=== PATIENT | female | born 1960 | race Hispanic/Latino ===

== ENCOUNTER 2021-10-21 11:26 | Emergency (ER) | payer OTHER ==
[~2021-10-21] VITALS: Ht 152.4 cm; Wt 57.2 kg
[2021-10-21 11:40] LABS: BASOPHILS % (AUTO) 0.5 % (0.0-5.0); EOSINOPHILS % (AUTO) 0.1 % (0.0-8.0); HEMATOCRIT 41.1 % (36-48); LYMPHOCYTES % (AUTO) 20.3 % (21.0-51.0); MEAN CORPUSCULAR HEMOGLOBIN 28.5 pg (27.0-33.0); MEAN CORPUSCULAR HGB CONC 33.3 g/dL (32.0-36.0); MEAN CORPUSCULAR VOLUME 85.6 fL (79-99); MONOCYTES % (AUTO) 3.9 % (3.0-13.0); NEUTROPHILS % (AUTO) 74.7 % (40.0-77.0); PLATELET COUNT (AUTO) 312 K/uL (130-400); RED CELL DISTRIBUTION WIDTH 14.1 % (11.0-15.5); WHITE BLOOD COUNT (AUTO) 9.4 K/uL (4.8-10.8)
[2021-10-21 11:46] LABS: APPEARANCE,URINE CLEAR (CLEAR); BILIRUBIN,URINE NEGATIVE (NEGATIVE); COLOR,URINE YELLOW (YELLOW); GLUCOSE, URINE (UA) NEGATIVE (NEGATIVE); KETONES,URINE NEGATIVE (NEGATIVE); LEUKOCYTE ESTERASE ,URINE NEGATIVE (NEGATIVE); NITRATE,URINE NEGATIVE (NEGATIVE); OCCULT BLOOD,URINE SMALL (NEGATIVE); PH,URINE 8.5 (5.0-8.0); PROTEIN,URINE 30 mg/dL (NEGATIVE); UROBILINOGEN,URINE 0.2 mg/dL (0.2-1.0)
[2021-10-21 11:53] LABS: CREATININE 0.6 mg/dL (0.5-1.5); POTASSIUM 3.4 mmol/L (3.5-5.1)
[2021-10-21 11:56] LABS: BACTERIA,URINE Many /HPF (None Seen); MUCUS,URINE Moderate LPF (None Seen); WBC,URINE 0-1 /HPF (0-1)
[2021-10-21 11:57] LABS: ALBUMIN 3.4 g/dL (3.5-5.0); BILIRUBIN,TOTAL 0.3 mg/dL (0.2-1.0)
[2021-10-21] MEDS ORDERED: 0.9%NACL 1000ML 1,000 ML IV SCH (13:00)
[2021-10-21] MEDS ORDERED: CEFTRIAXONE 1G VIAL IVP ONE (13:00)
[2021-10-21] MEDS ORDERED: MORPHINE 2 MG SYG IVP ONE (13:00)
[2021-10-21] MEDS ORDERED: PROMETHAZINE HCL 25 MG/ML 1ML AMPULE IM ONE (13:00)
[2021-10-21] MEDS ORDERED: POTASSIUM BICARB/CIT AC 25 MEQ TABLET.EFF PO ONE (13:00)
[2021-10-21 13:33] VITALS: BP 164/62
[2021-10-21] MEDS ORDERED: CYCL10TA16 PO (13:56)
[2021-10-21] MEDS ORDERED: NAPR-1180 PO (13:56)
[2021-10-22] MEDS ORDERED: LEVO112C4 PO (12:21)
[2021-10-22] MEDS ORDERED: ATOR10 PO (12:21)
[2021-10-22] MEDS ORDERED: LOSA25TA41 PO (12:21)
== END 2021-10-21 14:15 | disposition home or self-care (01) ==
LOC: EDH 11:26
DX: M94.0 Chondrocostal junction syndrome [Tietze] (principal); R10.13 Epigastric pain; E03.9 Hypothyroidism, unspecified; E78.00 Pure hypercholesterolemia, unspecified; I10 Essential (primary) hypertension; Z90.49 Acquired absence of other specified parts of digestive tract
CPT/HCPCS: 36415; 74176; 80053; 81001; 82150; 84484; 85025; 87088; 93005; 96361; 96372; 96374; 96375; J0696; J2550; J7030

== ENCOUNTER 2021-10-22 10:24 | Observation (INO) | payer OTHER ==
[~2021-10-22] VITALS: Ht 152.4 cm; Wt 55.8 kg
[~2021-10-22 10:24] MED LIST: CYCL10TA16 PO; NAPR-1180 PO
[2021-10-22 11:00] LABS: APPEARANCE,URINE SL CLOUDY (CLEAR); BILIRUBIN,URINE NEGATIVE (NEGATIVE); COLOR,URINE YELLOW (YELLOW); GLUCOSE, URINE (UA) NEGATIVE (NEGATIVE); KETONES,URINE 40 mg/dL (NEGATIVE); LEUKOCYTE ESTERASE ,URINE NEGATIVE (NEGATIVE); NITRATE,URINE NEGATIVE (NEGATIVE); OCCULT BLOOD,URINE MODERATE (NEGATIVE); PH,URINE 8.5 (5.0-8.0); PROTEIN,URINE 30 mg/dL (NEGATIVE); UROBILINOGEN,URINE 0.2 mg/dL (0.2-1.0)
[2021-10-22 11:01] LABS: BASOPHILS % (AUTO) 0.4 % (0.0-5.0); HEMATOCRIT 42.2 % (36-48); LYMPHOCYTES % (AUTO) 20.4 % (21.0-51.0); MEAN CORPUSCULAR HEMOGLOBIN 28.9 pg (27.0-33.0); MEAN CORPUSCULAR HGB CONC 34.4 g/dL (32.0-36.0); MEAN CORPUSCULAR VOLUME 84.2 fL (79-99); MONOCYTES % (AUTO) 3.6 % (3.0-13.0); NEUTROPHILS % (AUTO) 74.3 % (40.0-77.0); PLATELET COUNT (AUTO) 334 K/uL (130-400); RED BLOOD CELL COUNT(AUTO) 5.01 MIL/uL (4.00-5.50); RED CELL DISTRIBUTION WIDTH 13.8 % (11.0-15.5); WHITE BLOOD COUNT (AUTO) 10.4 K/uL (4.8-10.8)
[2021-10-22 11:15] LABS: CREATININE 0.7 mg/dL (0.5-1.5)
[2021-10-22 11:18] LABS: BILIRUBIN,TOTAL 0.4 mg/dL (0.2-1.0); TOTAL PROTEIN, SERUM 7.9 g/dL (6.0-8.3)
[2021-10-22 11:25] LABS: AMORPHOUS SEDIMENT,UR Moderate /LPF (None Seen); BACTERIA,URINE Few /HPF (None Seen); WBC,URINE 0-1 /HPF (0-1)
[2021-10-22 11:28] LABS: POTASSIUM 2.9 mmol/L (3.5-5.1)
[2021-10-22] MEDS ORDERED: 0.9%NACL 1000ML 1,000 ML IV SCH (11:30)
[2021-10-22] MEDS ORDERED: PROMETHAZINE HCL 25 MG/ML 1ML AMPULE IM ONE (11:30)
[2021-10-22] MEDS ORDERED: POTASSIUM BICARB/CIT AC 25 MEQ TABLET.EFF PO SCH (12:00)
[2021-10-22] MEDS ORDERED: NITROGLYCERIN 1GM OINT 1 INCH/1GM TD SCH (12:00)
[2021-10-22] MEDS ORDERED: ASPIRIN 325MG TAB PO SCH (12:00)
[2021-10-22] MEDS ORDERED: LOSA25TA41 PO (12:21)
[2021-10-22] MEDS ORDERED: LEVO112C4 PO (12:21)
[2021-10-22] MEDS ORDERED: ATOR10 PO (12:21)
[2021-10-22] MEDS ORDERED: CEFTRIAXONE 1G VIAL IV SCH (12:30)
[2021-10-22] MEDS ORDERED: ONDANSETRON 4MG INJ IV PRN (12:30)
[2021-10-22] MEDS ORDERED: POTASSIUM CHLORIDE 20MEQ/100ML 100 ML IV ONE (12:49)
[2021-10-22] MEDS ORDERED: METOPROLOL TARTRATE 1 MG/ML 5ML VIAL IV PRN (13:00)
[2021-10-22] MEDS ORDERED: KETOROLAC 15MG/ML VIAL (15MG/ML) IV PRN (13:00)
[2021-10-22] MEDS ORDERED: LIDOCAINE HCL-MPF 1% 2ML VIAL IV PRN (13:00)
[2021-10-22] MEDS ORDERED: HYDROMORPHONE 0.5 MG SYG (0.5MG/0.5ML) IV PRN (13:30)
[2021-10-22] MEDS: LACTATED RINGERS 1000ML 1,000 ML IV SCH ×2 (13:58→20:53)
[2021-10-22] MEDS: POTASSIUM CHLORIDE 20MEQ/100ML 100 ML IV PRN (13:58)
[2021-10-22] MEDS: FAMOTIDINE 20MG VIAL IV SCH ×2 (14:13→20:47)
[2021-10-22 16:50] VITALS: BP 158/101
[2021-10-22 20:51] VITALS: BP 167/84
[2021-10-22] MEDS ORDERED: ATORVASTATIN 10 MG TABLET PO SCH (21:00)
[2021-10-22 23:40] VITALS: BP 189/89
[2021-10-23 02:32] VITALS: BP 157/93
[2021-10-23 04:25] LABS: BASOPHILS % (AUTO) 0.4 % (0.0-5.0); EOSINOPHILS % (AUTO) 0.1 % (0.0-8.0); HEMATOCRIT 42.1 % (36-48); LYMPHOCYTES % (AUTO) 20.2 % (21.0-51.0); MEAN CORPUSCULAR HEMOGLOBIN 28.8 pg (27.0-33.0); MEAN CORPUSCULAR VOLUME 84.9 fL (79-99); MONOCYTES % (AUTO) 5.9 % (3.0-13.0); PLATELET COUNT (AUTO) 325 K/uL (130-400); RED BLOOD CELL COUNT(AUTO) 4.96 MIL/uL (4.00-5.50); RED CELL DISTRIBUTION WIDTH 13.6 % (11.0-15.5); WHITE BLOOD COUNT (AUTO) 13.5 K/uL (4.8-10.8)
[2021-10-23 04:43] VITALS: BP 156/69
[2021-10-23 04:49] LABS: ALBUMIN 3.5 g/dL (3.5-5.0); BILIRUBIN,TOTAL 0.5 mg/dL (0.2-1.0); CREATININE 0.7 mg/dL (0.5-1.5); POTASSIUM 3.5 mmol/L (3.5-5.1); THYROID STIMULATING HORMONE 0.33 uIU/mL (0.36-3.74); TOTAL PROTEIN, SERUM 7.3 g/dL (6.0-8.3)
[2021-10-23] MEDS ORDERED: LEVOTHYROXINE 112 MCG TABLET PO SCH (06:30)
[2021-10-23] MEDS: LACTATED RINGERS 1000ML 1,000 ML IV SCH (06:48)
[2021-10-23] MEDS: POTASSIUM CHLORIDE 20MEQ/100ML 100 ML IV PRN (06:49)
[2021-10-23 08:00] VITALS: BP 185/90
[2021-10-23] MEDS: FAMOTIDINE 20MG VIAL IV SCH (08:52)
[2021-10-23] MEDS ORDERED: CEPH500T PO (09:00)
[2021-10-23] MEDS ORDERED: ENOXAPARIN SODIUM 40 MG/0.4 ML SYRINGE SQ SCH (09:00)
[2021-10-23] MEDS ORDERED: LOSARTAN 25 MG TABLET PO SCH (09:00)
[2021-10-23] MEDS ORDERED: ONDA-104 PO (09:00)
[2021-10-23] MEDS ORDERED: DICY20TA3 PO (09:00)
[2021-10-23] MEDS ORDERED: PANT40TA54 PO (09:01)
== END 2021-10-23 10:15 | disposition home or self-care (01) ==
LOC: EDH 10:24 → INTOOBSV 12:21 → OBSVTOIN 12:21 → EDHIP 12:21 → 4BH 16:44
PROVIDERS: ADMIT Hospitalist; ATTEND Hospitalist
DX: K52.9 Noninfective gastroenteritis and colitis, unspecified (principal); Z20.822 Contact with and (suspected) exposure to COVID-19; E86.1 Hypovolemia; R07.89 Other chest pain; E87.6 Hypokalemia; E78.5 Hyperlipidemia, unspecified; I10 Essential (primary) hypertension; E03.9 Hypothyroidism, unspecified; M94.0 Chondrocostal junction syndrome [Tietze]; Z85.850 Personal history of malignant neoplasm of thyroid; Z90.49 Acquired absence of other specified parts of digestive tract; Z79.899 Other long term (current) drug therapy
CPT/HCPCS: 99285; 96361 ×2; 96365; 96375; 71045; 87635; 96366 ×2; 96376 ×2; 84484 ×3; 80053 ×2; 83690; 85025 ×2; 87088; 81001; 36415 ×2; 93005 ×3; 96372 ×2; 84443; J3490 ×6; J7030; J2550; J0696; J2405 ×2; J3480 ×2; J1885; G0378; J7120; J1650

== ENCOUNTER 2022-04-03 10:29 | Emergency (ER) | payer OTHER ==
[~2022-04-03] VITALS: Ht 152.4 cm; Wt 55.8 kg
[~2022-04-03 10:29] MED LIST changes: +ATOR10 PO; +CEPH500T PO; -CYCL10TA16 PO; +DICY20TA3 PO; +LEVO112C4 PO; +LOSA25TA41 PO; -NAPR-1180 PO; +ONDA-104 PO; +PANT40TA54 PO
[2022-04-03 10:58] LABS: BASOPHILS % (AUTO) 0.5 % (0.0-5.0); EOSINOPHILS % (AUTO) 0.1 % (0.0-8.0); HEMATOCRIT 47.7 % (36-48); LYMPHOCYTES % (AUTO) 23.7 % (21.0-51.0); MEAN CORPUSCULAR HEMOGLOBIN 28.2 pg (27.0-33.0); MEAN CORPUSCULAR HGB CONC 33.5 g/dL (32.0-36.0); MEAN CORPUSCULAR VOLUME 84.1 fL (79-99); MONOCYTES % (AUTO) 3.8 % (3.0-13.0); NEUTROPHILS % (AUTO) 71.6 % (40.0-77.0); PLATELET COUNT (AUTO) 322 K/uL (130-400); RED BLOOD CELL COUNT(AUTO) 5.67 MIL/uL (4.00-5.50); WHITE BLOOD COUNT (AUTO) 8.8 K/uL (4.8-10.8)
[2022-04-03] MEDS ORDERED: ONDANSETRON 4MG INJ IVP ONE (11:00)
[2022-04-03 11:06] LABS: CREATININE 0.7 mg/dL (0.5-1.5); POTASSIUM 3.6 mmol/L (3.5-5.1)
[2022-04-03 11:10] LABS: ALBUMIN 4.3 g/dL (3.5-5.0); TOTAL PROTEIN, SERUM 8.6 g/dL (6.0-8.3)
[2022-04-03 11:13] LABS: APPEARANCE,URINE CLOUDY (CLEAR); BILIRUBIN,URINE NEGATIVE (NEGATIVE); COLOR,URINE YELLOW (YELLOW); GLUCOSE, URINE (UA) 30 mg/dL (NEGATIVE); KETONES,URINE 5 mg/dL (NEGATIVE); LEUKOCYTE ESTERASE ,URINE NEGATIVE Leu/uL (NEGATIVE); NITRATE,URINE NEGATIVE (NEGATIVE); OCCULT BLOOD,URINE MODERATE (NEGATIVE); PH,URINE 8.5 (5.0-8.0); PROTEIN,URINE 200 mg/dL (NEGATIVE); UROBILINOGEN,URINE 0.2 mg/dL (0.2-1.0)
[2022-04-03] MEDS ORDERED: 0.9%NACL 1000ML 1,000 ML IV ONE (11:30)
[2022-04-03] MEDS ORDERED: CLONIDINE HCL 0.2 MG TABLET PO STA (12:03)
[2022-04-03 12:19] LABS: BACTERIA,URINE RARE /HPF (None Seen); MUCUS,URINE MANY LPF (None Seen); RBC,URINE 51-100 /HPF (0-1); SQUAMOUS EPITHELIAL CELL,UR RARE /HPF (0-2)
[2022-04-03] MEDS ORDERED: ONDA4TAB10 PO (13:45)
[2022-04-03] MEDS ORDERED: PROMETHAZINE HCL 25 MG/ML 1ML AMPULE IM ONE (14:00)
[2022-04-03 14:05] VITALS: BP 161/74
[2022-04-07] MEDS ORDERED: LEVO100C4 PO (09:20)
[2022-04-07] MEDS ORDERED: FAMO40TA7 PO (09:20)
[2022-04-09] MEDS ORDERED: LEVO50TA4 PO (07:16)
[2022-04-09] MEDS ORDERED: CIPR500S5 PO (07:21)
[2022-04-09] MEDS ORDERED: ATOR40TA71 PO (07:24)
== END 2022-04-03 14:06 | disposition home or self-care (01) ==
LOC: EDH 10:29
DX: K52.9 Noninfective gastroenteritis and colitis, unspecified (principal); E78.00 Pure hypercholesterolemia, unspecified; I10 Essential (primary) hypertension; Z90.49 Acquired absence of other specified parts of digestive tract; Z79.899 Other long term (current) drug therapy
CPT/HCPCS: 99285; 96374; 70450; 96361; 84484; 80053; 83690; 85025; 81001; 36415; 96372; 93005; J7030; J2550; J2405

== ENCOUNTER 2022-10-20 00:20 | Emergency (ER) | payer OTHER ==
[~2022-10-20] VITALS: Ht 152.4 cm; Wt 54.4 kg
[~2022-10-20 00:20] MED LIST changes: -ATOR10 PO; +ATOR40TA71 PO; -CEPH500T PO; +CIPR500S5 PO; -DICY20TA3 PO; +FAMO40TA7 PO; -LEVO112C4 PO; +LEVO50TA4 PO; -LOSA25TA41 PO; -ONDA-104 PO; -PANT40TA54 PO
[2022-10-20] MEDS ORDERED: ONDANSETRON ODT 4MG TAB ONE (00:30)
[2022-10-20 01:27] LABS: BASOPHILS % (AUTO) 0.4 % (0.0-5.0); EOSINOPHILS % (AUTO) 0.1 % (0.0-8.0); HEMATOCRIT 41.3 % (36-48); LYMPHOCYTES % (AUTO) 10.5 % (21.0-51.0); MEAN CORPUSCULAR HGB CONC 33.2 g/dL (32.0-36.0); MEAN CORPUSCULAR VOLUME 84.5 fL (79-99); MONOCYTES % (AUTO) 5.9 % (3.0-13.0); NEUTROPHILS % (AUTO) 82.5 % (40.0-77.0); PLATELET COUNT (AUTO) 253 K/uL (130-400); RED BLOOD CELL COUNT(AUTO) 4.89 MIL/uL (4.00-5.50); RED CELL DISTRIBUTION WIDTH 15.1 % (11.0-15.5); WHITE BLOOD COUNT (AUTO) 11.9 K/uL (4.8-10.8)
[2022-10-20 01:49] LABS: CREATININE 0.7 mg/dL (0.5-1.5); POTASSIUM 3.4 mmol/L (3.5-5.1)
[2022-10-20 01:56] LABS: ALBUMIN 3.4 g/dL (3.5-5.0); MAGNESIUM 1.8 mg/dL (1.80-2.40)
[2022-10-20] MEDS ORDERED: LACTATED RINGERS 1000ML 1,000 ML IV ONE (03:30)
[2022-10-20] MEDS ORDERED: MORPHINE 4 MG SYG IVP ONE (03:30)
[2022-10-20] MEDS ORDERED: LEVO750T68 PO (05:22)
[2022-10-20] MEDS ORDERED: METR-172 PO (05:22)
[2022-10-20] MEDS ORDERED: METO-296 PO (05:22)
[2022-10-20 05:27] VITALS: BP 116/60
[2022-10-20] MEDS ORDERED: METRONIDAZOLE 500 MG TABLET PO SCH (05:30)
[2022-10-20] MEDS ORDERED: LEVOFLOXACIN 500 MG TABLET PO SCH (05:30)
== END 2022-10-20 06:08 | disposition home or self-care (01) ==
LOC: EDH 00:20
DX: A04.9 Bacterial intestinal infection, unspecified (principal); E78.00 Pure hypercholesterolemia, unspecified; I10 Essential (primary) hypertension; Z90.49 Acquired absence of other specified parts of digestive tract; Z20.822 Contact with and (suspected) exposure to COVID-19
CPT/HCPCS: 99285; 96374; 71045; 96361; 87635; 83735; 84484; 80053; 83690; 85025; 87804 ×2; 83605; 36415; 93005; C9803; J7120; J2270